=== PATIENT | female | born 1995 | race Caucasian/White ===

== ENCOUNTER 2018-03-07 17:09 | Emergency (ER) | payer OTHER ==
[~2018-03-07] VITALS: Ht 167.6 cm; Wt 63.5 kg
[2018-03-07 17:18] VITALS: Ht 167.6 cm; Wt 63.5 kg
[2018-03-07 19:00] VITALS: TEMP 37.8
[2018-03-07] MEDS ORDERED: IBUPROFEN 600 MG TAB PO STA (19:04)
[2018-03-07] MEDS ORDERED: ACETAMINOPHEN 500 MG TAB PO STA (19:04)
[2018-03-07] MEDS ORDERED: DEXAMETHASONE **PF** INJ 10 MG/ML VIAL PO ONE (19:15)
[2018-03-07] MEDS ORDERED: IBUPROFEN 800 MG TAB ONE (19:18)
--- NOTE | 2018-03-07 19:22 | EMERGENCY ROOM VISIT NOTE ---
History Report prepared by Jamie: Clement Marques Under the Supervision of: Dr. Andrea Jaramillo M.D. First contact with patient: 18:55 Chief Complaint: ILLNESS Stated Complaint: COLD SORE, WEAKNESS, FEVER, LOSS OF APPETITE History of Present Illness The patient is a 22 year old female who presents to the Emergency Room with complaints of a worsening illness for the past two days. The patient states that two days ago she had a fever, and then yesterday her mouth was very sore all around. She additionally notes that she has been having a cough, congestion , and a sorethroat. The patient additionally notes that she has been having body aches and weakness. She denies any abdominal pain and leg swelling. She reports that she went to [facility], and they did not physiology teacher her any medications and tested negative for strep. The patient additionally notes that she called her PCP in [place]. She has a history of hypothyroidism and herpes stomatitis, and she states that she has had similar symptoms in the past, though it has never been this bad before. She states that her urine has been very yellow recently, though she denies any urinary burning, itching, and discharge. Source of History: patient Onset: two days ago Position: other (generalized) Quality: other (illness) Timing: worsening Associated Symptoms: + fevers, + sorethroat, + cough, + weakness Note: Associated symptoms: body aches and a sore mouth Review of Systems See HPI for pertinent positives and negatives. A total of ten systems were reviewed and were otherwise negative. Past Medical & Surgical Medical Problems: (1) Herpes stomatitis (2) Hypothyroid Social History Smoking Status: Never Smoker Housing Status: lives with roommate Occupation Status: [employer] student Current/Historical Medications Scheduled Acyclovir (Acyclovir), 1 TAB PO TID Scheduled PRN Ibuprofen Tab (Motrin), 800 MG PO Q8H PRN for Pain Physical Exam Vital Signs Date Time Temp Pulse Resp B/P (MAP) Pulse Ox O2 Delivery O2 Flow Rate FiO2 03/07/18 20:19 99 20 130/70 98 03/07/18 19:00 37.8 100 20 125/72 98 Room Air 03/07/18 17:18 37.8 108 20 136/76 98 Room Air Physical Exam GENERAL: Awake, alert, fatigued appearing, in no distress HENT: Normocephalic, atraumatic. Dry mucous membranes. She has moderate injection and mild edema in the posterior pharynx. Scant exudates, scattered mucosal ulcers/mucositis throughout oropharynx. No tongue elevation, no trismus , and no pain with tracheal manipulation. Mild submandibular lymphadenopathy. EYES: Normal conjunctiva. Sclera non-icteric. NECK: Supple. No nuchal rigidity. FROM. No JVD. RESPIRATORY: Clear to auscultation. CARDIAC: Regular rate, normal rhythm. Extremities warm and well perfused. Pulses equal. ABDOMEN: Soft, non-distended. No tenderness to palpation. No rebound or guarding. No masses. RECTAL: Deferred. MUSCULOSKELETAL: Chest examination reveals no tenderness. The back is symmetrical on inspection without obvious abnormality. There is no CVA tenderness to palpation. No joint edema. LOWER EXTREMITIES: Calves are equal size bilaterally and non-tender. No edema. No discoloration. NEURO: Normal sensorium. No sensory or motor deficits noted. SKIN: No rash or jaundice noted. Medical Decision & Procedures Medications Administered Medications (Trade) Dose Ordered Sig/Evelyn Route Start Time Stop Time Status Last Admin Dose Admin Acetaminophen (Tylenol Tab) 1,000 mg NOW STAT PO 03/07/18 19:04 03/07/18 19:07 DC 03/07/18 19:23 1,000 MG Dexamethasone Sodium Phosphate (Dexamethasone Inj Pf) 10 mg NOW ONCE PO 03/07/18 19:15 03/07/18 19:16 DC 03/07/18 19:23 10 MG Ibuprofen (Motrin Tab) 800 mg STK-MED ONCE .ROUTE 03/07/18 19:18 03/07/18 19:19 DC 03/07/18 19:23 800 MG Acyclovir (Zovirax Tab) 400 mg NOW STAT PO 03/07/18 20:00 03/07/18 20:02 DC 03/07/18 20:17 400 MG ED Course 1854: The patient was evaluated in room C8. A complete history and physical exam was performed. 1954: I reevaluated the patient. Discussed results and discharge instructions: she verbalized understanding and agreement. The patient is ready for discharge. Medical Decision I reviewed the patient's past medical history, medications, and the nursing notes as described above. Differential diagnosis: Etiologies such as viral syndrome, tonsillitis, streptococcal pharyngitis, mononucleosis, peritonsillar abscess, retropharyngeal abscess, otitis, pneumonia , influenza, as well as others were entertained. The patient is a 22-year-old woman current [employer] student from [place] who presents emergency department with worsening fevers chills and sore throat with oral ulcerations per hpi. No skin involvement. The patient denies any urinary or vaginal symptoms. Denies any history of previous STI's. She does report that her sister and father at home have similar outbreaks of oral ulcers and prior diagnosis of STI's. Denies any recent new medications. Of note, patient reports she was seen by [facility] earlier in the week and had a negative strep test. Subsequently sent her doctor in [place] photos who was concerned for a gingivostomatitis and recommended she take acyclovir. On further discussion with the patient she then described that she had had similar episodes in the past and in fact had a laryngoscopy where she was found to have vesicles deep in her posterior pharynx as well had been treated with acyclovir in the past. Rapid strep negative today. Patient feeling improved after ibuprofen, Tylenol, dexamethasone. I recommend the patient we treat with Valtrex given his twice daily dosing and improved compliance. However, the patient reports that "my recommended acyclovir and that is what I want." Thus, to improve likelihood of compliance will treat with acyclovir 400 mg 3 times daily for 10 days. Patient declines miracle mouthwash or GI cocktail for symptom relief she reports that "this does not help her and just gets stuck in her throat". Plan for [facility] follow-up. Findings and plan for follow-up reviewed with patient. Patient agreeable and d/c'd per discharge instructions. Medication Reconcilliation Current Medication List: was personally reviewed by me Blood Pressure Screening Patient's blood pressure: Elevated blood pressure Blood pressure disposition: Elevated BP felt to be situational Impression Primary Impression: Herpesviral gingivostomatitis and pharyngotonsillitis Scribe Attestation The scribe's documentation has been prepared under my direction and personally reviewed by me in its entirety. I confirm that the note above accurately reflects all work, treatment, procedures, and medical decision making performed by me. Departure Information Dispostion Home / Self-Care Prescriptions Acyclovir (ACYCLOVIR) 400 Mg Tab 1 TAB PO TID for 10 Days, #30 TAB Prov: Andrea Jaramillo M.D. 03/07/18 Ibuprofen Tab (MOTRIN) 800 Mg Tab 800 MG PO Q8H Y for Pain for 10 Days, #30 TAB Prov: Andrea Jaramillo M.D. 03/07/18 Referrals No Doctor, Assigned (PCP) Forms HOME CARE DOCUMENTATION FORM, IMPORTANT VISIT INFORMATION, WORK / SCHOOL INSTRUCTIONS Patient Instructions ED Herpes Simplex Virus Type 1, Herpes Care Sores, [facility] Additional Instructions Please follow up with S in the next week for re-evaluation. Your symptoms are likely due to an oral herpes infection. Otherwise, your exam did not show signs of an emergent condition at this time. Acetaminophen or ibuprofen for pain and fevers as needed. Valtrex, antiviral, as directed. Use your miracle mouth wash as directed for additional symptom relief. Drink plenty of fluids to ensure hydration. Return to the emergency department for worsening symptoms as described in the accompanying instructions.
[2018-03-07] MEDS ORDERED: VALA1TAB31 PO (19:51)
[2018-03-07] MEDS ORDERED: IBUP-1451 PO (19:51)
[2018-03-07] MEDS ORDERED: ACYCLOVIR 400 MG TAB PO STA (20:00)
[2018-03-07] MEDS ORDERED: ACYC400T PO (20:04)
[2018-03-07 20:19] VITALS: BP 130/70; PULSE 99; O2SAT 98
== END 2018-03-07 20:21 | disposition home or self-care (01) ==
LOC: C.EDB 17:11 → C.EDC 20:21
DX: B00.2 Herpesviral gingivostomatitis and pharyngotonsillitis (principal)